=== PATIENT | female | born 1960 | race Caucasian/White ===

== ENCOUNTER → 2019-01-04 | Outpatient (CLI) | payer BC | LOC: RAD 13:46 | DX: Z12.31 Encounter for screening mammogram for malignant neoplasm of breast (principal) ==

== ENCOUNTER → 2019-01-09 | Outpatient (CLI) | payer BC ==
[2019-01-09 07:12] VITALS: BP 125/59
--- NOTE | 2019-01-29 14:02 | P ---
[facility] [place] [address] PROCEDURE REPORT Name: CELESTERUDI M Room #: [facility].#: [id number] Admission: 01/09/19 Attend Phys: Dhruv Calixto MD Discharge: Date of : 60 Report #: [id number] THIS REPORT FOR: //name// CC: Dhruv Calixto Garett Montes PROCEDURE: Implantable loop recorder insertion. PREOPERATIVE DIAGNOSIS: Supraventricular tachycardia. POSTOPERATIVE DIAGNOSIS: Supraventricular tachycardia. DESCRIPTION OF PROCEDURE: The patient underwent informed consent. She was prepped in a standard fashion. I injected lidocaine at the incision site. Incision was made. The device was injected under the skin. Prior to injecting this device, the old device, which was a [employer] device, was removed. A single layer of suture was delivered to the skin layer and surgical glue was placed as well. There were no procedure related complications. The implanted device was a [employer], model #[id number], serial [id number]. CONCLUSIONS: Successful implantation of an implantable loop recorder. <ELECTRONICALLY SIGNED> By: Dhruv Calixto MD 01/29/19 1402 1223 [id number] Dhruv Calixto MD /nt
== END | disposition home or self-care (01) ==
LOC: CATH 06:46
DX: I47.1 Supraventricular tachycardia (principal); Z98.890 Other specified postprocedural states; Z88.0 Allergy status to penicillin; Z88.2 Allergy status to sulfonamides; Z88.8 Allergy status to other drugs, medicaments and biological substances